=== PATIENT | male | born 1955 | race Two or more races ===

== ENCOUNTER 2017-04-08 08:57 | Observation (INO) | payer BC ==
[~2017-04-08] VITALS: Ht 170.2 cm; Wt 77.2 kg
--- NOTE | 2017-04-08 09:13 | PHYS DOC ---
Past History Past Medical History: No Pertinent History Past Surgical History: No Surgical History Smoking: Cigarettes, Less than 1pk/day Alcohol Use: Occasionally Drug Use: None Adult General Chief Complaint Chief Complaint: SHORTNESS OF BREATH HPI HPI Patient is a pleasant 62-year-old male while at work today developed shortness of breath and dizziness and eventually syncopized. He was doing some labor at the time when felt he was about to pass out and he could not take a deep breath. He then became very Lightheaded and dizzy and attempted to slowly sit down. As he sat there he lost consciousness. He was stimulated by coworkers and regained consciousness very quickly. His only complaint at this time is of mild shortness of breath and tightness tightness across his chest. Described as a 1 or 2 out of 10. He denies any nausea, vomiting, diarrhea, cough, recent URI symptoms with runny nose congestion or fevers. Patient denies any prior history of the same. The symptoms do not radiate to the back the neck the shoulders or jaw. Patient denies any IV drug use, denies any alcoholism or alcohol problems. Patient denies any change in symptoms with position or with food. There is no history of seizures no seizure activity described at the scene. EMS arrival patient was awake alert and oriented able to converse without issue complaint only of mild shortness of breath. Vital signs are stable although mildly hypertensive upon arrival. THE Accu-Chek and glucose in the field were within normal limits. EKG in the field demonstrate some peaked T waves in the anterior leads. Time the EKG from EMS 8:36 AM April 17 demonstrates significant symmetrical T waves in the anterior lateral leads in V2 V3 V4 with no ST segment depression or ST elevation consistent with acute coronary ischemia. T waves are very concerning Differential diagnosis for chest pain: Pericarditis, myocarditis, endocarditis, pneumothorax, pneumonia, aortic dissection, esophageal spasm, esophagitis, peptic ulcer disease, acute coronary syndrome, mediastinitis, Boerhaave syndrome , musculoskeletal chest wall pain, costochondritis, intercostal strain, rib fracture, pulmonary contusion, pneumonitis, pleural effusion, pericardial effusion, pericardial tamponode, and pleurisy. Considered upon arrival Review of Systems Review of Systems Constitutional: Denies fever or chills [] Eyes: Denies change in visual acuity, redness, or eye pain [] HENT: Denies nasal congestion or sore throat [] Respiratory: Denies cough his only complaint is shortness of breath Cardiovascular: No additional information not addressed in HPI [] GI: Denies abdominal pain, nausea, vomiting, bloody stools or diarrhea [] : Denies dysuria or hematuria [] Musculoskeletal: Denies back pain or joint pain [] Integument: Denies rash or skin lesions [] Neurologic: Denies headache, does complain of focal weakness in the right lower leg for last 4 days. No sensory changes no headache [] Endocrine: Denies polyuria or polydipsia [] Current Medications Current Medications Current Medications Medications (Trade) Dose Ordered Sig/Jefferson Start Time Stop Time Status Last Admin Dose Admin Aspirin (Children'S Aspirin) 324 mg 1X ONCE 04/08/17 09:15 04/08/17 09:16 UNV Hydromorphone HCl (Dilaudid) 0.5 mg 1X ONCE 04/08/17 09:15 04/08/17 09:16 UNV Sodium Chloride (Normal Saline Flush) 10 ml QSHIFT PRN 04/08/17 09:15 UNV Physical Exam Physical Exam Signs reviewed demonstrate hypertension without hypoxia tachycardia or fever. Constitutional: Well developed, well nourished, no acute distress, non-toxic appearance. [] HENT: Normocephalic, atraumatic, bilateral external ears normal, oropharynx moist, no oral exudates, nose normal. [] Eyes: PERRLA, EOMI, conjunctiva normal, no discharge. [] Neck: Normal range of motion, no tenderness, supple, no stridor. Carotid bruits Cardiovascular:Heart rate regular rhythm, no murmur [] Lungs & Thorax: Bilateral breath sounds clear to auscultation [] Abdomen: Bowel sounds normal, soft, no tenderness, no masses, no pulsatile masses. [] Skin: Warm, dry, no erythema, no rash. [] Back: No tenderness, no CVA tenderness. [] Extremities: No tenderness, no cyanosis, no clubbing, ROM intact, no edema. [] Neurologic: Alert and oriented X 3, normal motor function, normal sensory function, no focal deficits noted. Nerves II through XII intact patient has a normal strength in all arms and legs to resistance. Normal visual acuities Psychologic: Affect normal, judgement normal, mood normal. [] EKG EKG KG time 9:[address] Booth demonstrates on 04/08/2017 normal sinus rhythm with a heart rate of 70 QRS of 76 VA interval 164 which is normal QTC which is normal 378 patient is mildly peaked T waves on the lateral leads V3 through V6 with a question will Q-wave in the inferior leads and leads 3 and aVF unclear etiology of age. This is an abnormal EKG [] Radiology/Procedures Radiology/Procedures [] [address] [address] IMAGING REPORT Signed PATIENT: CARMEN MCGINNIS ACCOUNT: [id number] : 1955 LOCATION: ER AGE: 62 SEX: M EXAM STATUS: REG ER ORD. PHYSICIAN: LA BOOTH MD REASON: snycpe PROCEDURE: CHEST PA & LATERAL Indication syncopal episode. Protocol study. PA and lateral views of the chest were obtained. No prior imaging of the chest is available. The heart and pulmonary vessels appear normal. The lungs are clear. There is no pleural fluid or pneumothorax. Bony structures appear grossly intact IMPRESSION: No acute or focal process is seen in the chest DICTATED AND SIGNED BY: TIFFANIE GUTIERREZ MD DATE: 04/08/17956 CC: LA BOOTH MD; PCP,NO ~ [address] [address] IMAGING REPORT Signed PATIENT: CARMEN MCGINNIS ACCOUNT: [id number] : 1955 LOCATION: ER AGE: 62 SEX: M EXAM STATUS: REG ER ORD. PHYSICIAN: LA BOOTH MD REASON: right leg weakness PROCEDURE: CT HEAD WO CONTRAST Indication right leg weakness. Suspect CVA. Noncontrast images of the head were obtained. No prior imaging of the head is available. The calvarium appears unremarkable. The visualized paranasal sinuses appear normal. There is no subdural or epidural hematoma. The ventricles and sulci are normal. There is no mass or midline shift. No hemorrhage or acute finding is seen. IMPRESSION: Normal noncontrast CT imaging of the head PQRS Compliance Statement: One or more of the following individualized dose reduction techniques were utilized for this examination: 1. Automated exposure control 2. Adjustment of the mA and/or kV according to patient size 3. Use of iterative reconstruction technique DICTATED AND SIGNED BY: TIFFANIE GUTIERREZ MD DATE: 04/08/17 0952 CC: LA BOOTH MD; PCP,NO ~ Course & Med Decision Making Course & Med Decision Making Pertinent Labs and Imaging studies reviewed. (See chart for details) Differential diagnosis for chest pain: Pericarditis, myocarditis, endocarditis, pneumothorax, pneumonia, aortic dissection, esophageal spasm, esophagitis, peptic ulcer disease, acute coronary syndrome, mediastinitis, Boerhaave syndrome , musculoskeletal chest wall pain, costochondritis, intercostal strain, rib fracture, pulmonary contusion, pneumonitis, pleural effusion, pericardial effusion, pericardial tamponode, and pleurisy. Stroke scale upon arrival was 0. 1a. Level of consciousness: 0 = Alert; keenly responsive. 1 = Not alert; but arousable by minor stimulation to obey, answer, or respond. 2 = Not alert; requires repeated stimulation to attend, or is obtunded and requires strong or painful stimulation to make movements (not stereotyped). 3 = Responds only with reflex motor or autonomic effects or totally unresponsive , flaccid, and areflexic. 1b. LOC questions: 0 = Answers both questions correctly. 1 = Answers one question correctly. 2 = Answers neither question correctly. 1c. LOC commands: 0 = Performs both tasks correctly. 1 = Performs one task correctly. 2 = Performs neither task correctly. 2. Best gaze: 0 = Normal. 1 = Partial gaze palsy; gaze is abnormal in one or both eyes, but forced deviation or total gaze paresis is not present. 2 = Forced deviation, or total gaze paresis not overcome by the oculocephalic maneuver. 3. Visual: 0 = No visual loss. 1 = Partial hemianopia. 2 = Complete hemianopia. 3 = Bilateral hemianopia (blind including cortical blindness). 4. Facial palsy: 0 = Normal symmetrical movements. 1 = Minor paralysis (flattened nasolabial fold, asymmetry on smiling). 2 = Partial paralysis (total or near-total paralysis of lower face). 3 = Complete paralysis of one or both sides (absence of facial movement in the upper and lower face). 5. Motor arm: 0 = No drift; limb holds 90 (or 45) degrees for full 10 seconds. 1 = Drift; limb holds 90 (or 45) degrees, but drifts down before full 10 seconds ; does not hit bed or other support. 2 = Some effort against gravity; limb cannot get to or maintain (if cued) 90 ( or 45) degrees, drifts down to bed, but has some effort against gravity. 3 = No effort against gravity; limb falls. 4 = No movement. UN = Amputation or joint fusion, explain: 5a. Left arm 5b. Right arm 6. Motor le = No drift; leg holds 30-degree position for full 5 seconds. 1 = Drift; leg falls by the end of the 5-second period but does not hit bed. 2 = Some effort against gravity; leg falls to bed by 5 seconds, but has some effort against gravity. 3 = No effort against gravity; leg falls to bed immediately. 4 = No movement. UN = Amputation or joint fusion, explain: 6a. Left leg 6b. Right leg 7. Limb ataxia: 0 = Absent. 1 = Present in one limb. 2 = Present in two limbs. UN = Amputation or joint fusion 8. Sensory: 0 = Normal; no sensory loss. 1 = Gkfq-xy-kqwyrykt sensory loss; patient feels pinprick is less sharp or is dull on the affected side; or there is a loss of superficial pain with pinprick , but patient is aware of being touched. 2 = Severe to total sensory loss; patient is not aware of being touched in the face, arm, and leg. 9. Best language: 0 = No aphasia; normal. 1 = Eehv-ao-qsxikmdq aphasia; some obvious loss of fluency or facility of comprehension, without significant limitation on ideas expressed or form of expression. Reduction of speech and/or comprehension, however, makes conversation about provided materials difficult or impossible. For example, in conversation about provided materials, examiner can identify picture or naming card content from patient's response. 2 = Severe aphasia; all communication is through fragmentary expression; great need for inference, questioning, and guessing by the listener. Range of information that can be exchanged is limited; listener carries burden of communication. Examiner cannot identify materials provided from patient response. 3 = Mute, global aphasia; no usable speech or auditory comprehension. 10. Dysarthria: 0 = Normal. 1 = Vdqg-mc-tqebuyzj dysarthria; patient slurs at least some words and, at worst , can be understood with some difficulty. 2 = Severe dysarthria; patient's speech is so slurred as to be unintelligible in the absence of or out of proportion to any dysphasia, or is mute/anarthric. UN = Intubated or other physical barrier, explain: 11. Extinction and inattention (formerly neglect): 0 = No abnormality. 1 = Visual, tactile, auditory, spatial, or personal inattention or extinction to bilateral simultaneous stimulation in one of the sensory modalities. 2 = Profound farrukh-inattention or extinction to more than one modality; does not recognize own hand or orients to only one side of space. We considered stroke and cardiac chest pain on arrival. Patient demonstrates a normal set of cardiac enzymes.Patient tells me that their symptoms given during CC are improved. We reviewed labs and radiology reports with patient the bedside. Patient feels markedly better at 10:30 AM we discussed plan of admission evaluation by cardiology for his chest pain because he is not low risk. Patient is a score 4. He is intermediate risk. 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 History: Highly suspicious 2 points moderately suspicious 1. slightly suspicious 0 point EKG: ST segment depression 2. nonspecific repolarization disturbance 1. normal 0 point Age: Greater than 65 2 points, 65-45 1., less than 45 years old 0 points Risk factors:> 3 risk factors 2 points, 1-2 risk factors one point, no risk factors 0 point Troponin: > 2 times normal 2 points, 1-2 times normal 1., normal limits 0 point Total score: Score % pts MACE/n MACE Policy 0-3 32% 1.9% 0.05% Discharge 4-6 51% 413/3136 13% 1.3% Observation Risk management 7-10 17% 518/1045 50% 2.8% Observation Treatment, CAGB [] Dragon Disclaimer Dragon Disclaimer This chart was dictated in whole or in part using Voice Recognition software in a busy, high-work load, and often noisy Emergency Department environment. It may contain unintended and wholly unrecognized errors or omissions. Departure Departure: Impression: Primary Impression: Chest pain Additional Impression: Shortness of breath Disposition: 09 ADMITTED INPATIENT Admitting Physician: Virginia Brown Condition: GUARDED Problem Qualifiers LA BOOTH MD Apr 08, 2017 09:12
[2017-04-08] MEDS ORDERED: 0.9 % SODIUM CHLORIDE 10 ML DISP.SYRIN. IV PRN (09:15)
[2017-04-08 09:21] LABS: BASO % 1 % (0-3); EOS # 0.2 x10^3/uL (0.0-0.7); EOS % 2 % (0-3); HEMATOCRIT 41.6 % (39.0-53.0); HEMOGLOBIN 14.4 g/dL (13.0-17.5); LYMPH # 2.5 x10^3/uL (1.0-4.8); LYMPH % 33 % (24-48); MEAN CORPUSCULAR HEMOGLOBIN 32 pg (25-35); MEAN CORPUSCULAR HGB CONC 35 g/dL (31-37); MEAN CORPUSCULAR VOLUME 94 fL (79-100); MONO # 0.4 x10^3/uL (0.0-1.1); MONO % 5 % (0-9); NEUT # 4.4 x10^3uL (1.8-7.7); NEUT % 59 % (31-73); PLATELET COUNT 198 x10^3/uL (140-400); RED BLOOD COUNT 4.45 x10^6/uL (4.30-5.70); RED CELL DISTRIBUTION WIDTH 12.8 % (11.5-14.5); WHITE BLOOD COUNT 7.4 x10^3/uL (4.0-11.0)
[2017-04-08 09:44] LABS: ALBUMIN 3.8 g/dL (3.4-5.0); CALCIUM 8.7 mg/dL (8.5-10.1); CREATININE 1.1 mg/dL (0.7-1.3); DIRECT BILIRUBIN 0.1 mg/dL (0.0-0.2); GFR 68.3; MAGNESIUM 2.1 mg/dL (1.8-2.4); POTASSIUM 3.8 mmol/L (3.5-5.1); TOTAL BILIRUBIN 0.3 mg/dL (0.2-1.0); TOTAL PROTEIN 7.1 g/dL (6.4-8.2)
[2017-04-08] MEDS ORDERED: ASPIRIN 81 MG TAB.CHEW PO ONE (09:50)
[2017-04-08] MEDS ORDERED: IV NORMAL SALINE 1,000ML 1,000 ML IV SCH ×2 (09:50→11:00)
[2017-04-08] MEDS ORDERED: HYDROmorphone PF 1 MG/ML DISP.SYRIN IV ONE (09:50)
--- NOTE | 2017-04-08 09:55 | EKG ---
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
--- NOTE | 2017-04-08 09:57 | RAD ---
Indication right leg weakness. Suspect CVA. Noncontrast images of the head were obtained. No prior imaging of the head is available. The calvarium appears unremarkable. The visualized paranasal sinuses appear normal. There is no subdural or epidural hematoma. The ventricles and sulci are normal. There is no mass or midline shift. No hemorrhage or acute finding is seen. IMPRESSION: Normal noncontrast CT imaging of the head PQRS Compliance Statement: One or more of the following individualized dose reduction techniques were utilized for this examination: 1. Automated exposure control 2. Adjustment of the mA and/or kV according to patient size 3. Use of iterative reconstruction technique
--- NOTE | 2017-04-08 10:01 | RAD ---
Indication syncopal episode. Protocol study. PA and lateral views of the chest were obtained. No prior imaging of the chest is available. The heart and pulmonary vessels appear normal. The lungs are clear. There is no pleural fluid or pneumothorax. Bony structures appear grossly intact IMPRESSION: No acute or focal process is seen in the chest
[2017-04-08] MEDS ORDERED: NITROGLYCERIN SUBLINGUAL 0.4 MG BOTTLE OF 25. SL PRN (10:45)
[2017-04-08] MEDS ORDERED: fentaNYL PF 100 MCG/2 ML VIAL IV PRN (10:45)
[2017-04-08] MEDS ORDERED: ACETAMINOPHEN 325 MG TABLET PO PRN (10:45)
[2017-04-08] MEDS ORDERED: ONDANSETRON PF 4 MG/2 ML VIAL. IV PRN (10:45)
[2017-04-08 11:30] VITALS: BP 146/86
[2017-04-08 12:35] VITALS: BP 146/86
[2017-04-08 13:36] VITALS: BP 130/77
[2017-04-08 13:37] VITALS: BP 137/81
[2017-04-08 13:38] VITALS: BP 146/82
--- NOTE | 2017-04-08 14:02 | CARD ---
APPROVED REPORT EXAM: Two-dimensional and M-mode echocardiogram with Doppler and color Doppler. Other Information Quality : GoodHR: 71bpm Rhythm : NSR INDICATION Chest pain RISK FACTORS Pt. C/o near syncope 2D DIMENSIONS RVDd3.0 (2.9-3.5cm)Left Atrium(2D)2.7 (1.6-4.0cm) IVSd0.7 (0.7-1.1cm)Aortic Root(2D)2.4 (2.0-3.7cm) LVDd4.3 (3.9-5.9cm)LVOT Diameter2.2 (1.8-2.4cm) PWd0.9 (0.7-1.1cm)LVDs2.7 (2.5-4.0cm) FS (%) 37.8 %SV57.0 ml LVEF(%)68.2 (>50%) Aortic Valve AoV Peak Iker.133.0cm/sAoV VTI28.0cm AO Peak GR.7.1mmHgLVOT Peak Iker.103.0cm/s LVOT VTI 23.87cmAO Mean GR.4mmHg KEVIN (VMAX)2.42ia7MOJ (VTI)3.13cm2 Mitral Valve MV E Ldwlwfss74.6cm/sMV E Peak Gr.2mmHg MV DECEL [id number] A Gxbiqixl69.8cm/s MV E Mean Gr.1mmHgE/A Ratio0.6 MV A Ucnclwcn28sr Pulmonary Valve PV Peak Nnllqoci219.8cm/sPV Peak Grad.5mmHg Tricuspid Valve TR P. Ekqnxnro593kh/sTR Peak Gr.30mmHg Pulmonary Vein S1 Shvtnjwx28.1cm/sD2 Pycrfsfe69.3cm/s LEFT VENTRICLE The left ventricle is normal size. There is normal left ventricular wall thickness. The left ventricu lar systolic function is normal and the ejection fraction is within normal range. The Ejection Fracti on is 60-65%. There is normal LV segmental wall motion. Transmitral Doppler flow pattern is Grade I-a bnormal relaxation pattern. RIGHT VENTRICLE The right ventricle is normal size. There is normal right ventricular wall thickness. The right ventr icular systolic function is normal. ATRIA The left atrium size is normal. The right atrium size is normal. The interatrial septum is intact wit h no evidence for an atrial septal defect or patent foramen ovale as noted on 2-D or Doppler imaging. AORTIC VALVE The aortic valve is mildly thickened. The aortic valve is trileaflet. Doppler and Color Flow revealed no significant aortic regurgitation. There is no significant aortic valvular stenosis. MITRAL VALVE The mitral valve is normal in structure and function. There is no evidence of mitral valve prolapse. There is no mitral valve stenosis. Doppler and Color Flow revealed no mitral valve regurgitation note d. TRICUSPID VALVE Doppler and Color Flow revealed mild tricuspid regurgitation. The pulmonary artery systolic pressure is estimated at 33 mmHg. PULMONIC VALVE The pulmonic valve is not well visualized but appears to open normally. Doppler and Color Flow reveal ed trace pulmonic valvular regurgitation. There is no pulmonic valvular stenosis by spectral Doppler. GREAT VESSELS The aortic root is normal in size. The ascending aorta is normal in size. Suboptimal subcostal view, unable to assess the IVC. PERICARDIAL EFFUSION There is no evidence of significant pericardial effusion. Critical Notification Critical Value: No <Conclusion> The left ventricular systolic function is normal and the ejection fraction is within normal range. Th e Ejection Fraction is 60-65%. There is normal LV segmental wall motion. No significant valvular disease.
[2017-04-08] MEDS ORDERED: MULT1TAB52 PO (15:32)
--- NOTE | 2017-04-08 16:04 | PDOC2 ---
AROLDO PENAIE Marlene [employer] [facility] 04/08/17 1603: CONSULT Date of Admission DATE: 04/08/17 TIME: 16:02 Reason for Consult: syncope Problem List Problems Medical Problems: (1) Chest pain Status: Acute (2) Shortness of breath Status: Acute History of Present Illness Patient is a pleasant 62-year-old male who presented today after a syncopal episode at work. 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 He reports that he began to sit down but did lose consciousness. His coworkers reported that he regained consciousness very quickly. There was no seizure like activity, no biting of tongue, no loss of continence. He was awake and aware when EMS arrived. Past Medical History no medical history Past Surgical History no history Family History non contributory Social History smokes less than 1ppd, occasional social ETOH, no illicit drugs. Current Medications Current Medications Aspirin (Children'S Aspirin) 324 mg 1X ONCE PO ; Start 04/08/17 at 09:50; Stop 04/08/17 at 09:51; Status DC Hydromorphone HCl (Dilaudid) 0.5 mg 1X ONCE IV Last administered on 04/08/17 10:03; Start 04/08/17 at 09:50; Stop 04/08/17 at 09:51; Status DC Sodium Chloride 1,000 ml @ 1,000 mls/hr Q1H IV Last administered on 04/08/17 10:03; Start 04/08/17 at 09:50; Stop 04/08/17 at 10:49; Status DC Sodium Chloride (Normal Saline Flush) 10 ml QSHIFT PRN IV AFTER MEDS AND BLOOD DRAWS; Start 04/08/17 at 09:15 Ondansetron HCl (Zofran) 4 mg PRN Q4HRS PRN IV NAUSEA/VOMITING; Start 04/08/17 at 10:45; Stop 04/09/17 at 10:44 Fentanyl Citrate (Fentanyl 2ml Vial) 50 mcg PRN Q2HR PRN IV PAIN; Start at 10:45; Stop 04/09/17 at 10:44 Sodium Chloride 1,000 ml @ 125 mls/hr Q8H IV ; Start 04/08/17 at 11:00; Stop 04/09/17 at 10:59 Acetaminophen (Tylenol) 650 mg PRN Q4HRS PRN PO FEVER; Start 04/08/17 at 10:45; Stop 04/09/17 at 10:44 Nitroglycerin (Nitrostat) 0.4 mg PRN Q5MIN PRN SL CHEST PAIN; Start 04/08/17 at 10:45; Stop 04/09/17 at 10:44 Active Scripts Active Reported Multivitamins (Multivitamin) 1 Each Tablet 1 Tab PO DAILY LAST DOSE GIVEN: DATE: TIME: NEXT DOSE DUE: DATE: TIME: Allergies: Coded Allergies: No Known Drug Allergies (Unverified , 04/08/17) Review of System as per HPI or negative General: Alert, Oriented X3, Cooperative, No acute distress HEENT: Atraumatic, EOMI, Mucous membr. moist/pink Lungs: Clear to auscultation, Normal air movement Heart: Regular rate, Normal S1, Normal S2, Other (no murmurs, clicks or rubs, no gallops) Abdomen: Normal bowel sounds, Soft Extremities: No cyanosis, No edema, Normal pulses Neuro: Normal speech, Strength at 5/5 X4 ext Psych/Mental Status: Mental status NL, Mood NL VITALS Vital Signs Date Time Temp Pulse Resp B/P (MAP) Pulse Ox O2 Delivery O2 Flow Rate FiO2 04/08/17 15:32 Room Air 04/08/17 13:38 75 20 146/82 (103) 97 04/08/17 12:35 97.7 Labs Laboratory Tests Test 04/08/17 09:08 04/08/17 15:38 White Blood Count 7.4 x10^3/uL (4.0-11.0) Red Blood Count 4.45 x10^6/uL (4.30-5.70) Hemoglobin 14.4 g/dL (13.0-17.5) Hematocrit 41.6 % (39.0-53.0) Mean Corpuscular Volume 94 fL (79-100) Mean Corpuscular Hemoglobin 32 pg (25-35) Mean Corpuscular Hemoglobin Concent 35 g/dL (31-37) Red Cell Distribution Width 12.8 % (11.5-14.5) Platelet Count 198 x10^3/uL (140-400) Neutrophils (%) (Auto) 59 % (31-73) Lymphocytes (%) (Auto) 33 % (24-48) Monocytes (%) (Auto) 5 % (0-9) Eosinophils (%) (Auto) 2 % (0-3) Basophils (%) (Auto) 1 % (0-3) Neutrophils # (Auto) 4.4 x10^3uL (1.8-7.7) Lymphocytes # (Auto) 2.5 x10^3/uL (1.0-4.8) Monocytes # (Auto) 0.4 x10^3/uL (0.0-1.1) Eosinophils # (Auto) 0.2 x10^3/uL (0.0-0.7) Basophils # (Auto) 0.0 x10^3/uL (0.0-0.2) D-Dimer (Belkis) < 0.19 mg/L (0.00-0.50) Sodium Level 140 mmol/L (136-145) Potassium Level 3.8 mmol/L (3.5-5.1) Chloride Level 104 mmol/L (98-107) Carbon Dioxide Level 30 mmol/L (21-32) Anion Gap 6 (6-14) Blood Urea Nitrogen 18 mg/dL (8-26) Creatinine 1.1 mg/dL (0.7-1.3) Estimated GFR (Cockcroft-Gault) 68.3 Glucose Level 116 mg/dL (70-99) Calcium Level 8.7 mg/dL (8.5-10.1) Magnesium Level 2.1 mg/dL (1.8-2.4) Total Bilirubin 0.3 mg/dL (0.2-1.0) Direct Bilirubin 0.1 mg/dL (0.0-0.2) Aspartate Amino Transf (AST/SGOT) 17 U/L (15-37) Alanine Aminotransferase (ALT/SGPT) 23 U/L (16-63) Alkaline Phosphatase 106 U/L (46-116) Creatine Kinase 160 U/L (39-308) Creatine Kinase MB (Mass) 1.4 ng/mL (0.0-3.6) Creatine Kinase MB Relative Index 0.9 % (0-4) Troponin I Quantitative < 0.017 ng/mL (0-0.055) < 0.017 ng/mL (0-0.055) XU-Miq-X-Type Natriuretic Peptide 15 pg/mL (0-124) Total Protein 7.1 g/dL (6.4-8.2) Albumin 3.8 g/dL (3.4-5.0) Lipase 195 U/L (73-393) Thyroid Stimulating Hormone (TSH) 3.293 uIU/mL (0.358-3.740) Images EKG - sinus rhythm with IWMI age undetermined and non specific st/t abn. Head CT - no acute abnormalities CXR - no acute process Assessment/Plan 1. Syncope - prob vasovagal. Echo normal. Orthostatic pressures normal. No arrhythmias on telemetry. Suggest outpatient event monitoring and follow up. 2. abn EKG -no acute ischemic changes. Echo with normal LV function and wall motion. Event monitoring as above and outpatient follow up. Problems: TAD ABEL MD 04/09/17 0849: CONSULT Allergies: Coded Allergies: No Known Drug Allergies (Unverified , 04/08/17) Assessment/Plan Patient seen and examined 04/08/17. 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 Syncope most probably vasovagal. Telemetry did not show any significant arrhythmias. 2-D echo showed normal LV function without any significant structural abnormalities. Okay for discharge home from cardiac standpoint. Plan for event monitor as an outpatient. Thank you for your consultation. Problems: MIREYA PENA APRN Apr 08, 2017 16:03 TAD ABEL MD Apr 09, 2017 08:49
--- NOTE | 2017-04-08 17:24 | PDOC3 ---
Discharge Summary Visit Information Date of Admission: Apr 08, 2017 Date of Discharge: Apr 08, 2017 Final Diagnosis Problems Medical Problems: (1) Chest pain Status: Acute (2) Shortness of breath Status: Acute 1. Syncope - prob vasovagal. Echo normal. Orthostatic pressures normal. No arrhythmias on telemetry. Suggest outpatient event monitoring and follow up. 2. abn EKG -no acute ischemic changes. Echo with normal LV function and wall motion. 2. Tobacco use disorder Problems: Problems: Brief Hospital Course Allergies Allergies Coded Allergies Type Severity Reaction Last Updated Verified No Known Drug Allergies 04/08/17 No Vital Signs Vital Signs Date Time Temp Pulse Resp B/P (MAP) Pulse Ox O2 Delivery O2 Flow Rate FiO2 04/08/17 15:32 Room Air 04/08/17 13:38 75 20 146/82 (103) 97 04/08/17 12:35 97.7 Lab Results Laboratory Tests Test 04/08/17 09:08 04/08/17 15:38 White Blood Count 7.4 x10^3/uL (4.0-11.0) Red Blood Count 4.45 x10^6/uL (4.30-5.70) Hemoglobin 14.4 g/dL (13.0-17.5) Hematocrit 41.6 % (39.0-53.0) Mean Corpuscular Volume 94 fL (79-100) Mean Corpuscular Hemoglobin 32 pg (25-35) Mean Corpuscular Hemoglobin Concent 35 g/dL (31-37) Red Cell Distribution Width 12.8 % (11.5-14.5) Platelet Count 198 x10^3/uL (140-400) Neutrophils (%) (Auto) 59 % (31-73) Lymphocytes (%) (Auto) 33 % (24-48) Monocytes (%) (Auto) 5 % (0-9) Eosinophils (%) (Auto) 2 % (0-3) Basophils (%) (Auto) 1 % (0-3) Neutrophils # (Auto) 4.4 x10^3uL (1.8-7.7) Lymphocytes # (Auto) 2.5 x10^3/uL (1.0-4.8) Monocytes # (Auto) 0.4 x10^3/uL (0.0-1.1) Eosinophils # (Auto) 0.2 x10^3/uL (0.0-0.7) Basophils # (Auto) 0.0 x10^3/uL (0.0-0.2) D-Dimer (Belkis) < 0.19 mg/L (0.00-0.50) Sodium Level 140 mmol/L (136-145) Potassium Level 3.8 mmol/L (3.5-5.1) Chloride Level 104 mmol/L (98-107) Carbon Dioxide Level 30 mmol/L (21-32) Anion Gap 6 (6-14) Blood Urea Nitrogen 18 mg/dL (8-26) Creatinine 1.1 mg/dL (0.7-1.3) Estimated GFR (Cockcroft-Gault) 68.3 Glucose Level 116 mg/dL (70-99) Calcium Level 8.7 mg/dL (8.5-10.1) Magnesium Level 2.1 mg/dL (1.8-2.4) Total Bilirubin 0.3 mg/dL (0.2-1.0) Direct Bilirubin 0.1 mg/dL (0.0-0.2) Aspartate Amino Transf (AST/SGOT) 17 U/L (15-37) Alanine Aminotransferase (ALT/SGPT) 23 U/L (16-63) Alkaline Phosphatase 106 U/L (46-116) Creatine Kinase 160 U/L (39-308) Creatine Kinase MB (Mass) 1.4 ng/mL (0.0-3.6) Creatine Kinase MB Relative Index 0.9 % (0-4) Troponin I Quantitative < 0.017 ng/mL (0-0.055) < 0.017 ng/mL (0-0.055) CK-Pco-U-Type Natriuretic Peptide 15 pg/mL (0-124) Total Protein 7.1 g/dL (6.4-8.2) Albumin 3.8 g/dL (3.4-5.0) Lipase 195 U/L (73-393) Thyroid Stimulating Hormone (TSH) 3.293 uIU/mL (0.358-3.740) Brief Hospital Course Mr. Cannon is a 62 old male who presented with an episode of syncopy or near syncopy at work. He felt sweaty and cold and then passed out. No particular chest pain . negative medical history. Troponins negative. Ekg abnormal and seen by cardiologyl Physical ex m negative. Orthostatics negative. Discharge Information Condition at Discharge: Improved Disposition/Orders: D/C to Home Dischare Medications Current Medications Aspirin (Children'S Aspirin) 324 mg 1X ONCE PO ; Start 04/08/17 at 09:50; Stop 04/08/17 at 09:51; Status DC Hydromorphone HCl (Dilaudid) 0.5 mg 1X ONCE IV Last administered on 04/08/17 10:03; Start 04/08/17 at 09:50; Stop 04/08/17 at 09:51; Status DC Sodium Chloride 1,000 ml @ 1,000 mls/hr Q1H IV Last administered on 04/08/17 10:03; Start 04/08/17 at 09:50; Stop 04/08/17 at 10:49; Status DC Sodium Chloride (Normal Saline Flush) 10 ml QSHIFT PRN IV AFTER MEDS AND BLOOD DRAWS; Start 04/08/17 at 09:15 Ondansetron HCl (Zofran) 4 mg PRN Q4HRS PRN IV NAUSEA/VOMITING; Start 04/08/17 at 10:45; Stop 04/09/17 at 10:44 Fentanyl Citrate (Fentanyl 2ml Vial) 50 mcg PRN Q2HR PRN IV PAIN; Start at 10:45; Stop 04/09/17 at 10:44 Sodium Chloride 1,000 ml @ 125 mls/hr Q8H IV ; Start 04/08/17 at 11:00; Stop 04/09/17 at 10:59 Acetaminophen (Tylenol) 650 mg PRN Q4HRS PRN PO FEVER; Start 04/08/17 at 10:45; Stop 04/09/17 at 10:44 Nitroglycerin (Nitrostat) 0.4 mg PRN Q5MIN PRN SL CHEST PAIN; Start 04/08/17 at 10:45; Stop 04/09/17 at 10:44 Active Scripts Active Reported Multivitamins (Multivitamin) 1 Each Tablet 1 Tab PO DAILY LAST DOSE GIVEN: DATE: TIME: NEXT DOSE DUE: DATE: TIME: Patient Instructions Patient Instuctions Recommend an event monitor and to follow-up as an outpatient. LIZBETH SWARTZ DO Apr 08, 2017 17:24
--- NOTE | 2017-04-09 01:02 | ACF ---
Admission Criteria Forms CARDIOLOGY [facility] Clinical Indications for Admission to Inpatient Care ( Place 'X' for any and all applicable criteria): Hospital admission is needed for appropriate care of the patient because of ANY ONE of the following (1): [ ] I. Hemodynamic instability as indicated by ALL of the following (1)(2)(3) (4)(5) [ ]a) Vital signs or other findings not as expected for chronic patient condition or baseline [ ]b) Instability indicated by ANY ONE of the following: [ ]i) Hypotension [ ]ii) Symptomatic Tachycardia unresponsive to treatment ( e.g., analgesia, fluids, sedation as indicated) [ ]iii) Inadequate perfusion indicated by ANY ONE of the following: [ ] 1) Lactic acidosis (> 2 mmol/L) [ ] 2) New abnormal capillary refill (> 3 seconds) [ ] 3) Reduced urine output [ ] 4) New altered mental status [ ]iv) Orthostatic vital sign changes unresponsive to treatment (e.g., fluids) [ ]v) IV inotropic or vasopressor medication required to maintain adequate blood pressure or perfusion [ ] II. Severe heart failure as indicated by ANY ONE of the following(17)(18) [ ]a) Respiratory distress [ ]b) Hypotension [ ]c) Anasarca (refractory to outpatient therapy) [ ]d) Cardiac arrhythmias of immediate concern [ ]e) Myocardial ischemia [ ] III. Cardiac arrhythmias or findings of immediate concern indicated by ANY ONE of the following (19)(20): [ ] a) Heart rhythms that are inherently dangerous or unstable indicated by ANY ONE of the following (21)(22)(23): [ ] i) Resuscitated ventricular fibrillation or cardiac arrest [ ] ii) Ventricular escape rhythm [ ] iii) Sustained ventricular tachycardia (30 seconds or more of ventricular rhythm at greater than 100 beats per minute) [ ] iv) Nonsustained ventricular tachycardia and ANY ONE of the following: [ ] 1) Suspected cardiac ischemia as cause or consequence of ventricular tachycardia [ ] 2) In setting of acute myocarditis [ ] b) Unstable cardiac conduction defects indicated by ANY ONE of the following(23)(24)(25) [ ] i) Type II second-degree atrioventricular block [ ]ii) Third-degree atrioventricular block [ ]iii) New-onset left bundle branch block with suspected myocardial ischemia [ ]c) Any heart rhythm and ANY ONE of the following (21)(22)(26)(27) (28) [ ] i) Continuous long-term ECG monitoring needed (e.g., initiation of drug requiring monitoring for more than 24 hours) [ ] ii) Patient has automatic implanted cardioverter defibrillator that is repeatedly firing, malfunctioning, or in need of immediate adjustment of settings beyond the scope of ambulatory or observation care [ ]d) Heart rhythms of concern due to ANY ONE of the following: [ ] i) Hypotension [ ] ii) Respiratory distress [ ] iii) Association with other significant symptoms (e.g., bradycardia with syncope or ongoing dizziness, supraventricular tachycardia with chest pain (14)(15)(17) [ ] IV. Monitoring for cardiac contusion beyond the scope of observation care needed [A](30)(31)(32) [ ] V. Surgical or device complication (e.g., valve replacement complication , pacemaker dysfunction) (35)(41)(44)(45)(46) [ ] . Inpatient palliative care needed. [B](49) Also use Inpatient Palliative Care Criteria [ ] VII. Nonbacterial thrombotic (marantic) endocarditis (36)(43)(47)(48) [X] VIII. Cardiology condition, symptom, or finding for which emergency and observation care has failed or are not considered appropriate. [ ] IX. Acute valvular disease requiring inpatient as indicated by ANY ONE of the following (41) [ ]a) Acute valvular regurgitation (42) [ ]b) Noninfectious valvulitis (43) [ ]c) Obstructive valve thrombosis [ ]d) Paravalvular leak [ ]e) Other significant valvular disorder remaining after emergency or observation level of care (as appropriate) [ ]X. Pericardial disease requiring inpatient treatment as indicated by ANY ONE of the following (33)(34)(35)(36)(37) [ ]a) Suspected tamponade (38)(39)(40) [ ]b) Hemopericardium [ ]c) Other significant pericardial disorder remaining after emergency or observation level of care (as appropriate) [ ] XI. Cardiac ischemia beyond scope of emergency and observation care. [ ] XII. Hypertension requiring inpatient treatment as indicated by ANY ONE of the following (6)(7)(8) [ ]a) SBP greater than 220 mm Hg or DBP greater than 120 mmHg despite treatment [ ]b) SBP greater than 140 mm Hg or DBP greater than 100 mm Hg with evidence of acute end organ damage as indicated by ANY ONE of the following [ ] i) Encephalopathy [ ] ii) Acute renal failure as indicated by new onset of ANY ONE of the following (9)(10)(11)(12)(13) [ ]1) 3-fold rise in serum creatinine from baseline [ ]2) Serum creatinine greater than 4 mg/dL ( 354 micromoles/L) with acute rise greater than 0.5 mg/dL (44.2 micromoles/L) [ ]3) Reduction of more than 75% in estimated glomerular filtration rate from baseline [ ]4) Estimated glomerular filtration rate less than 35 mL/min/1.73m2 (0.59 mL/sec/1.73m2) in child up to 18 years of age [ ]5) Cessation of urine output indicated by ALL of the following [ ]A. Adequate volume status [ ]B. Inadequate urine output as indicated by ANY ONE of the following [ ]a. Urine output less than 0.3 mL/kg/hr for 24 hours [ ]b. Anuria (urine output less than 0.1 mL/kg/hr) for 12 hours [ ] iii) Aortic dissection [ ] iv) Myocardial Ischemia [ ] v) Left ventricular heart failure [ ]vi) Retinal Hemorrhage [ ]vii) Other significant finding [ ]c) Hypertension in child requiring inpatient treatment as indicated by ALL of the following(14)(15)(16) [ ] i) Outpatient treatment not effective, not available, or not appropriate [ ]ii) SBP or DBP greater than 95th percentile for age [ ]iii) Evidence of acute end organ damage as indicated by ANY ONE of the following [ ]1) Altered mental status [ ]2) Acute renal failure as indicated by new onset of ANY ONE of the following(9)(10)(11)(12)(13) [ ]A. 3-fold rise in serum creatinine from baseline [ ]B. Serum creatinine greater than 4 mg/dL (354 micromoles/L) with acute rise greater than 0.5 mg/dL (44.2 micromoles/L) [ ]C. Reduction of more than 75% in estimated glomerular filtration rate from baseline [ ]D. Estimated glomerular filtration rate less than 35 mL/min/1.73m2 (0.59 mL/sec/1.73m2) in child up to 18 years of age [ ]E. Cessation of urine output indicated by ALL of the following [ ]a. Adequate volume status [ ]b. Inadequate urine output as indicated by ANY ONE of the following [ ]i) Urine output less than 0.3 mL/kg/hr for 24 hours [ ]ii) Anuria ( urine output less than 0.1 mL/kg/hr) for 12 hours [ ]3) Severe headache [ ]4) Visual disturbance [ ]5) Retinal hemorrhage [ ]6) Other significant finding [ ]XIII. Complications of transplanted heart indicated by ANY ONE of the following(61): [ ]a) Acute graft rejection requiring inpatient management (eg, intravenous immunosuppression)(62)(63) [ ]b) Acute graft heart failure indicated by ANY ONE of the following(64): [ ]i) Hemodynamic instability [ ]ii) Cardiac arrhythmias of immediate concern [ ]iii) Pulmonary edema that is very severe (eg, mechanical ventilation needed, imminent or likely, need for 100% oxygen to keep oxygen saturation above 90%) [ ]iv) Pulmonary edema that is persistent as indicated by ALL of the following: [ ]1) New need for oxygen therapy to keep oxygen saturation above 90% (or increased FiO2 need from baseline) [ ]2) Has not improved sufficiently with emergency department or observation care IV diuretics or other heart failure treatments[E] [ ]v) Altered mental status that is severe or persistent [ ]vi) Increased creatinine (new on laboratory test) with reduction of more than 50% in estimated glomerular filtration rate from baseline [ ]vii) Progressively (ongoing) rising creatinine (known from past laboratory test) with reduction of more than 25% in estimated glomerular filtration rate from baseline [ ]viii) Acute renal failure [ ]ix) Acute peripheral ischemia (eg, examination shows pulseless, cool, mottled, or cyanotic extremity) [ ]x) Pulmonary artery catheter monitoring needed [ ]xi) Other sign or symptom of heart failure requiring inpatient treatment (ie, too severe or not responsive to outpatient and observation care treatment) [ ]c) Infection requiring inpatient management (eg, Hemodynamic instability, need for intravenous antimicrobial treatment)(66)(67)(68)(69)(70) [ ]d) Cardiac allograft vasculopathy requiring inpatient management ( eg evidence of cardiac ischemia)(71) [ ]e) Other complication of transplanted heart (eg, stroke, severe pulmonary hypertension, severe valvular dysfunction) requiring inpatient management(72) The original [facility] content created by [facility] has been revised. The portions of the content which have been revised are identified through the use of italic text or in bold, and [facility] has neither reviewed nor approved the modified material. All other unmodified content is copyright [facility]. Please see references footnoted in the original [facility] edition 2016 Admission Criteria Met?: Yes CARL ZULUAGA Apr 09, 2017 01:01
== END 2017-04-08 17:05 | disposition home or self-care (01) ==
LOC: ER 08:57 → INTOOBSV 10:43 → 1 SOUTH 10:43
PROVIDERS: ADMIT Family Medicine; ATTEND Family Medicine
DX: R55 Syncope and collapse (principal); R06.02 Shortness of breath; R07.9 Chest pain, unspecified; R94.31 Abnormal electrocardiogram [ECG] [EKG]; I10 Essential (primary) hypertension; F17.210 Nicotine dependence, cigarettes, uncomplicated
CPT/HCPCS: 36415; 70450; 71020; 80048; 80061; 80076; 82553; 83690; 83735; 83880; 84443; 84484; 85027; 85379; 93005; 93306; 96361; 96374; 99285; 99406; G0378; J1170; J7030; G0379